=== PATIENT | female | born 1945 | race African-American/Black ===

== ENCOUNTER → 2019-12-15 | Outpatient (CLI) | payer MEDICARE, OTHER ==
--- NOTE | 2019-12-16 00:25 | RAD ---
Indication: Nonhealing ulcer. Ultrasound was utilized to obtain a peak systolic velocity of the ankle and brachial arterial vasculature in order to calculate an ankle brachial index. Peak systolic velocities are measured in mm of mercury. LEFT: Ankle: 150 Brachial: 154 TAYLOR: 1.0 IMPRESSION: Left Ankle-brachial index of 1.0 which is within normal limits. Electronically signed by: Roberto Julian MD (12/16/2019 12:23 AM) [id number]
--- NOTE | 2019-12-16 11:18 | RAD ---
Left lower coronary arterial duplex ultrasound study and ABIs, without comparison for left great toe ulcer. Technique and findings: The TAYLOR on the left is 0.98. There is moderate multifocal calcified atherosclerosis in multiple distributions however, and this may make the TAYLOR insensitive to hemodynamically significant disease. There is biphasic flow involving common femoral, superficial femoral, popliteal, posterior tibial, and peroneal arteries, with no focal velocity elevations identified. There is monophasic flow within the anterior tibial and dorsalis pedis arteries. IMPRESSION: 1. Moderate multifocal atherosclerosis, with monophasic flow in the anterior tibial and dorsalis pedis arteries. Given the corresponding location of the patient's wound, direct angiography and endovascular recanalization of the anterior tibial artery may be of benefit. Electronically signed by: Enrique Rivera MD (12/16/2019 11:15 AM) [id number]
== END | disposition home or self-care (01) ==
LOC: US 14:38
PROVIDERS: ATTEND Emergency Medicine Undersea and Hyperbaric Medicine
DX: I70.245 Atherosclerosis of native arteries of left leg with ulceration of other part of foot (principal); L97.529 Non-pressure chronic ulcer of other part of left foot with unspecified severity
CPT/HCPCS: 93922; 93926

== ENCOUNTER 2019-12-26 08:38 | Outpatient (CLI) | payer MEDICARE, OTHER ==
[~2019-12-26] VITALS: Ht 170.2 cm; Wt 90.7 kg
[2019-12-26] VITALS (12 sets, daily range): BP systolic 128–179; BP diastolic 56–81
[2019-12-26] MEDS ORDERED: CALC200T23 PO (09:03)
[2019-12-26] MEDS ORDERED: INSU100V11 IJ (09:03)
[2019-12-26] MEDS ORDERED: FURO40TA4 PO (09:03)
[2019-12-26] MEDS ORDERED: ATEN100T PO (09:03)
[2019-12-26] MEDS ORDERED: ASPI-630 PO (09:03)
[2019-12-26] MEDS ORDERED: AMLO5TAB10 PO (09:03)
[2019-12-26] MEDS ORDERED: FEXO180T16 PO (09:03)
[2019-12-26] MEDS ORDERED: CHOL200078 PO (09:03)
[2019-12-26] MEDS ORDERED: MULT-658 PO (09:03)
[2019-12-26] MEDS ORDERED: HYDR-2868 PO (09:03)
[2019-12-26] MEDS ORDERED: APIX5TAB PO (09:03)
[2019-12-26] MEDS ORDERED: ISOS30TA4 PO (09:03)
[2019-12-26] MEDS ORDERED: POTA20TA4 PO (09:03)
[2019-12-26] MEDS ORDERED: INSU100I41 SQ (09:03)
[2019-12-26] MEDS ORDERED: LISI-130 PO (09:03)
[2019-12-26 09:07] LABS: BASO # 0.1 x10^3/uL (0.0-0.2); BASO % 1 % (0-3); EOS # 0.2 x10^3/uL (0.0-0.7); EOS % 3 % (0-3); HEMATOCRIT 40.2 % (36.0-47.0); HEMOGLOBIN 13.4 g/dL (12.0-15.5); LYMPH # 2.2 x10^3/uL (1.0-4.8); LYMPH % 26 % (24-48); MEAN CORPUSCULAR HEMOGLOBIN 29 pg (25-35); MEAN CORPUSCULAR HGB CONC 33 g/dL (31-37); MEAN CORPUSCULAR VOLUME 86 fL (79-100); MONO # 0.5 x10^3/uL (0.0-1.1); MONO % 6 % (0-9); NEUT # 5.5 x10^3/uL (1.8-7.7); NEUT % 65 % (31-73); PLATELET COUNT 271 x10^3/uL (140-400); RED BLOOD COUNT 4.66 x10^6/uL (3.50-5.40); RED CELL DISTRIBUTION WIDTH 13.3 % (11.5-14.5); WHITE BLOOD COUNT 8.6 x10^3/uL (4.0-11.0)
[2019-12-26 09:16] LABS: CALCIUM 9.2 mg/dL (8.5-10.1); CREATININE 0.9 mg/dL (0.6-1.0); GFR 74.5; POTASSIUM 4.3 mmol/L (3.5-5.1); PROTHROMBIN TIME PATIENT 12.5 SEC (11.7-14.0)
[2019-12-26] MEDS ORDERED: IODIXANOL 320 MG/ML 100 ML VIAL. ONE (09:36)
[2019-12-26] MEDS ORDERED: HEPARIN for ARTERIAL LINE 1,500 ML ONE (09:36)
[2019-12-26] MEDS ORDERED: LIDOCAINE WITH 8.4% SOD BICARB 3 ML DISP.SYRIN. ONE (09:36)
[2019-12-26] MEDS ORDERED: MIDAZOLAM HCL/PF 2 MG/2 ML VIAL. ONE (09:43)
[2019-12-26] MEDS ORDERED: fentaNYL PF VIAL 100 MCG/2 ML VIAL ONE (09:44)
[2019-12-26] MEDS ORDERED: HEPARIN for IV BOLUS 10,000 UNIT/10 ML VIAL. ONE (09:44)
[2019-12-26] MEDS ORDERED: MIDAZOLAM HCL/PF 2 MG/2 ML VIAL. IV ONE (11:30)
[2019-12-26] MEDS ORDERED: LIDOCAINE WITH 8.4% SOD BICARB 3 ML DISP.SYRIN. IJ ONE (11:30)
[2019-12-26] MEDS ORDERED: IODIXANOL 320 MG/ML 100 ML VIAL. IART ONE (11:30)
[2019-12-26] MEDS ORDERED: HEPARIN for IV BOLUS 10,000 UNIT/10 ML VIAL. IV ONE (11:30)
[2019-12-26] MEDS ORDERED: fentaNYL PF VIAL 100 MCG/2 ML VIAL IV ONE (11:30)
[2019-12-26] MEDS ORDERED: CONTRAST GIVEN. MC PRN (11:30)
--- NOTE | 2019-12-26 11:51 | PDOC ---
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 High grade peronal a stenosis treated with balloon angioplasty. Otherwise LLE arteries patent. Procedure Performed Procedure Performed Angiography LLE Peroneal angioplasty to 2.5 mm Type of Anesthesia Type of Anesthesia Mod Sed Estimated Blood Loss EBL: 20 Specimens Specimans None Drain/Tubes Drains/Tubes None Condition of Patient Condition of Patient Stable Disposition Disposition To [facility] for recovery, expect DC home NICOL PAIZ MD Dec 26, 2019 11:51
--- NOTE | 2019-12-26 15:02 | NUR ---
Discharge Note: CHAR AQUINO Discharge instructions and discharge home medications reviewed with Patient and a copy given. All questions have been answered and understanding verbalized. The following instructions and handouts were given: adult moderate sedation and groin site care,angiography info. Discontinued lines and drains: Peripheral IV intact. Patient discharged to Home or Self Care withFamily Membervia Wheelchair
--- NOTE | 2019-12-26 16:04 | RAD ---
12/26/2019 12/26/2019 1:54 PM Procedure: 1. Abdominal aortogram 2. Pelvic angiogram 3. Left lower extremity angiography 4. Angioplasty of the left peroneal artery Clinical Indication: Left great toe wound. History of left ankle with pediatric trauma with multiple surgeries. Discussion: The procedure was explained in its entirety to the patient or the patients designated telephone services sales representative by a member of the treatment team, including a discussion of the risks, benefits and commonly accepted alternatives to the procedure, as well as the expected consequences of no therapy whatsoever. Discussion of the risks included, but was not limited to, those that are most frequent and those that are rare but possibly severe or life-threatening, as well as the possibility of unforeseen complications. All elements of maximal sterile barrier technique including the use of a cap, mask, sterile gown, sterile gloves, large sterile sheet, appropriate hand hygiene, and 2% chlorhexidine for cutaneous antisepsis (or acceptable alternative antiseptic per current guidelines) were followed for this procedure. The right groin was prepped and draped using sterile barrier technique. 1% lidocaine was administered for local anesthesia. Ultrasound evaluation demonstrates left common femoral artery remains patent. The bifurcation of the SFA and profunda artery is somewhat high. The needle right common femoral artery was accessed immediately above its bifurcation. Fluoroscopic imaging confirms puncture over the mid femoral head. A 5 Armenian vascular sheath was placed. A guidewire and catheter were advanced into the abdominal aorta. Abdominal aortogram was obtained demonstrating tortuosity of the abdominal aorta. No major arterial occlusion, stenosis, or aneurysm is seen. The catheter was repositioned and pelvic angiography was then performed. This demonstrates no significant aortoiliac stenosis. The aortic bifurcation was crossed. Left lower extremity angiography was performed. Left common femoral, profunda, superficial femoral arteries are patent. Left popliteal artery is patent above and below the knee. The left anterior tibial artery is atrophic or hypoplastic in appearance. No significant anterior tibial artery is seen below the level of the plate and screw construct spanning the distal tibia. No reconstitution of the distal anterior tibial artery and dorsalis pedis artery is identified. Hyperemia at the level of the ankle is present. The peroneal artery demonstrates high-grade stenosis at its origin, the peroneal artery is otherwise patent to the just above the ankle with collaterals supplying the anterior and posterior distal leg and foot. The posterior tibial artery is widely patent through its course, extending into the widely patent lateral plantar artery. Given the absence of a treatable anterior tibial and dorsalis pedis artery, and likely contribution to anterior blood flow via collaterals from the peroneal artery, balloon angioplasty was performed at the origin of the highly stenotic peroneal artery with a 2.5 mm balloon. This resulted in significantly improved morphology and flow through the peroneal artery, with likely improved collateralization to the anterior foot. A closure device was deployed at the right common femoral artery access site. Manual pressure was held. Hemostasis was achieved. Sterile dressings were applied. No immediate complications were identified. Total fluoroscopy time: 10.7 MIN Dose area product: 178 Gycm2 The procedures performed under conscious sedation including continuous cardiopulmonary monitoring via dedicated sedation nurse. [id number] sedation time: : 66 min Impression: 1. No significant aortoiliac or femoropopliteal stenosis 2. Occlusion of the anterior tibial artery and dorsalis pedis artery which may be posttraumatic in nature. 3. High-grade stenosis of the proximal peroneal artery successfully treated with balloon angioplasty.. Collateralized, arterial flow between the treated peroneal artery and anterior foot noted. 4. Widely patent posterior tibial artery and lateral plantar artery
== END 2019-12-26 15:15 | disposition home or self-care (01) ==
LOC: INTRAD 08:38
PROVIDERS: ATTEND Preventive Medicine Undersea and Hyperbaric Medicine
DX: Z79.899 Other long term (current) drug therapy (principal); I70.212 Atherosclerosis of native arteries of extremities with intermittent claudication, left leg
CPT/HCPCS: 36415; 37228; 75625; 75710; 76937; 80048; 85025; 85610; 99152; 99153; C1725; C1760; C1769; C1892; C1894; J1644; J2250; J3010; J3490; Q9967; G0269